=== PATIENT | male | born 1960 | race Caucasian/White ===

== ENCOUNTER 2016-10-31 23:21 | Emergency (ER) | payer MEDICARE, MEDICAID ==
[~2016-10-31] VITALS: Ht 165.1 cm; Wt 64.0 kg
[~2016-10-31 23:21] MED LIST: ACET-2178 PO; CHOL400T15 PO; CLON1TAB PO; DIVA500T3 PO; LACO100T2 PO; MYLANTA PO; NITR-87 PO; OXCA300T4 PO; OYSTER SHELL PO; PATAODR EACHEYE; PEPTO BISMOL PO; SYNTHROID PO
[2016-11-01 00:11] LABS: BASOPHILS % 1.3 % (0.0-2.0); EOSINOPHILS % 3.7 % (0.0-5.0); HEMOGLOBIN. 12.3 g/dL (14.0-18.0); LYMPHOCYTES % 56.6 % (20.0-50.0); MEAN CORPUSCULAR HEMOGLOBIN 32.2 pg (28.0-32.0); MEAN CORPUSCULAR HGB CONC 33.3 g/dL (31.0-37.0); MEAN CORPUSCULAR VOLUME 96.8 fL (80.0-94.0); MEAN PLATELET VOLUME 8.1 fl (7.4-10.4); MONOCYTES % 10.1 % (2.0-8.0); NEUTROPHILS % 28.3 % (40.0-76.0); PLATELET 222 x1000/uL (130-400); RED BLOOD CELL COUNT 3.82 mill/uL (4.7-6.1); RED CELL DISTRIBUTION WIDTH 14.7 % (11.6-14.6); WHITE BLOOD COUNT 5.8 x1000/uL (4.5-11.0)
[2016-11-01 00:16] LABS: CHLORIDE 103 mEq/L (98-107); INDEX HEMOLYSI 1 (1-3); INDEX ICTERIC 1 (1-4); INDEX LIPEMIC 1 (1-3)
[2016-11-01 00:25] LABS: ALANINE AMINOTRANSFERASE 23 IU/L (13-61); ANION GAP 12; CALCIUM 9.2 mg/dL (8.5-10.1); CARBON DIOXIDE 35 mEq/L (21-32); UREA NITROGEN BLOOD 11 mg/dL (7-21); eGFR > 60 mL/min (>60)
[2016-11-01 02:56] VITALS: BP 130/71
== END 2016-11-01 04:11 | disposition home or self-care (01) ==
LOC: ER 23:22
DX: R60.0 Localized edema (principal); E03.9 Hypothyroidism, unspecified; G80.9 Cerebral palsy, unspecified; Z79.1 Long term (current) use of non-steroidal anti-inflammatories (NSAID); Z79.899 Other long term (current) drug therapy
CPT/HCPCS: 36415; 71010; 80053; 85025; 99285

== ENCOUNTER 2016-11-22 10:26 | Inpatient (IN) | payer MEDICARE, MEDICAID ==
[~2016-11-22] VITALS: Ht 165.1 cm; Wt 77.6 kg
[2016-11-22] MEDS ORDERED: SODIUM CHLORIDE 0.9% 1,000 ML IV ONE (10:48)
[2016-11-22] MEDS ORDERED: MAGNESIUM CITRATE 300ML SOLUTION PO ONE (11:00)
[2016-11-22 11:23] LABS: BASOPHILS % 0.6 % (0.0-2.0); HEMATOCRIT. 40.7 % (42.0-52.0); HEMOGLOBIN. 13.5 g/dL (14.0-18.0); LYMPHOCYTES % 11.8 % (20.0-50.0); MEAN CORPUSCULAR HEMOGLOBIN 31.6 pg (28.0-32.0); MEAN CORPUSCULAR HGB CONC 33.2 g/dL (31.0-37.0); MEAN CORPUSCULAR VOLUME 95.2 fL (80.0-94.0); MONOCYTES % 8.1 % (2.0-8.0); NEUTROPHILS % 79.5 % (40.0-76.0); PLATELET 116 x1000/uL (130-400); RED BLOOD CELL COUNT 4.28 mill/uL (4.7-6.1); RED CELL DISTRIBUTION WIDTH 14.4 % (11.6-14.6); WHITE BLOOD COUNT 12.5 x1000/uL (4.5-11.0)
[2016-11-22 11:29] LABS: INR 1.2
[2016-11-22 11:32] LABS: ANION GAP 14; CALCIUM 8.8 mg/dL (8.5-10.1); CARBON DIOXIDE 29 mEq/L (21-32); CHLORIDE 100 mEq/L (98-107); INDEX HEMOLYSI 1 (1-3); INDEX ICTERIC 1 (1-4); INDEX LIPEMIC 1 (1-3); UREA NITROGEN BLOOD 27 mg/dL (7-21)
[2016-11-22 11:37] LABS: ALANINE AMINOTRANSFERASE 30 IU/L (13-61); eGFR > 60 mL/min (>60)
[2016-11-22 11:45] LABS: LACTIC ACID 2.2 mmol/L (0.4-2.0)
[2016-11-22] MEDS ORDERED: SODIUM CHLORIDE 0.9% 1000ML BAG (SEPSIS BOLUS) IV ONE (13:15)
[2016-11-22] MEDS ORDERED: LEVOFLOXACIN 750MG PREMIX 150 ML IV ONE (13:15)
[2016-11-22] MEDS ORDERED: METRONIDAZOLE 500 MG PREMIX 100 ML IV ONE (13:15)
[2016-11-22] MEDS ORDERED: DIVALPROEX SODIUM 250MG ER TABLET PO ONE (13:45)
[2016-11-22] MEDS ORDERED: CLONAZEPAM 1MG TABLET PO ONE (13:45)
[2016-11-22] MEDS ORDERED: ACETAMINOPHEN 650MG/20.3ML UDC PO ONE (14:15)
[2016-11-22] MEDS ORDERED: VALPROATE SODIUM 250MG/5ML UDC PO NR (14:20)
[2016-11-22 15:51] VITALS: BP 125/84
[2016-11-22 15:53] VITALS: BP 125/84
[2016-11-22] MEDS ORDERED: LORAZEPAM 2MG/ML CPJ IM PRN (16:45)
[2016-11-22] MEDS ORDERED: HYDROMORPHONE HCL/PF 2MG/ML CPJ IM PRN (16:54)
[2016-11-22] MEDS ORDERED: ONDANSETRON HCL 4MG/2ML VIAL IV PRN (16:55)
[2016-11-22] MEDS: SENNOSIDES 8.6MG TABLET PO SCH (17:00)
[2016-11-22] MEDS: SODIUM CHLORIDE 0.9% 1,000 ML IV SCH (17:24)
[2016-11-22 18:16] LABS: CLARITY URINE CLOUDY (CLEAR); COLOR URINE DARK YELLOW (YELLOW); GLUCOSE URINE NEGATIVE (NEGATIVE); KETONES URINE TRACE (NEGATIVE); LEUKOCYTE ESTERASE URINE 2+ (NEGATIVE); NITRITE URINE NEGATIVE (NEGATIVE); OCCULT BLOOD URINE NEGATIVE (NEGATIVE); PROTEIN URINE 1+ (NEGATIVE); SPECIFIC GRAVITY URINE 1.028 (1.005-1.030)
[2016-11-22 18:57] LABS: BACTERIA URINE 2+; RBC URINE 0-2 /hpf (0-2); SQUAMOUS EPITHELIAL CELL URINE 1+ /lpf (RARE/1+)
[2016-11-22 18:58] LABS: WBC URINE 15-25 /hpf (0-2)
[2016-11-22 20:00] VITALS: BP 142/90
[2016-11-22] MEDS ORDERED: VIMPAT 150 MG GT SCH (20:00)
[2016-11-22] MEDS ORDERED: DIVALPROEX SODIUM 250MG DR TABLET PO SCH (22:00)
[2016-11-22] MEDS: IPRATROPIUM/ALBUTEROL 0.5-3(2.5)MG/3ML NEB HHN SCH (22:07)
[2016-11-22] MEDS: CLONAZEPAM 1MG TABLET GT SCH (22:24)
[2016-11-22] MEDS: METRONIDAZOLE 500MG TABLET PO SCH (22:25)
[2016-11-22] MEDS: VALPROATE SODIUM 250MG/5ML UDC PO SCH (22:25)
[2016-11-23] VITALS: BP 136/99
[2016-11-23] MEDS: OXCARBAZEPINE 300MG TABLET GT SCH ×5 (00:44→23:52)
[2016-11-23] MEDS: IPRATROPIUM/ALBUTEROL 0.5-3(2.5)MG/3ML NEB HHN SCH ×3 (03:17→21:09)
[2016-11-23 04:00] VITALS: BP 124/82
[2016-11-23 05:41] LABS: BASOPHILS % 0.3 % (0.0-2.0); HEMATOCRIT. 43.1 % (42.0-52.0); HEMOGLOBIN. 14.4 g/dL (14.0-18.0); LYMPHOCYTES % 13.4 % (20.0-50.0); MEAN CORPUSCULAR HEMOGLOBIN 31.9 pg (28.0-32.0); MEAN CORPUSCULAR HGB CONC 33.5 g/dL (31.0-37.0); MEAN CORPUSCULAR VOLUME 95.1 fL (80.0-94.0); MEAN PLATELET VOLUME 9.4 fl (7.4-10.4); MONOCYTES % 5.7 % (2.0-8.0); NEUTROPHILS % 80.6 % (40.0-76.0); PLATELET 145 x1000/uL (130-400); RED BLOOD CELL COUNT 4.53 mill/uL (4.7-6.1); RED CELL DISTRIBUTION WIDTH 14.7 % (11.6-14.6); WHITE BLOOD COUNT 14.2 x1000/uL (4.5-11.0)
[2016-11-23] MEDS: VALPROATE SODIUM 250MG/5ML UDC PO SCH ×3 (06:31→21:42)
[2016-11-23] MEDS: METRONIDAZOLE 500MG TABLET PO SCH ×3 (06:31→21:42)
[2016-11-23] MEDS: CLONAZEPAM 1MG TABLET GT SCH ×3 (06:32→21:42)
[2016-11-23 06:49] LABS: ALANINE AMINOTRANSFERASE 34 IU/L (13-61); CARBON DIOXIDE 25 mEq/L (21-32); CHLORIDE 103 mEq/L (98-107); INDEX HEMOLYSI 1 (1-3); INDEX ICTERIC 1 (1-4); INDEX LIPEMIC 1 (1-3); UREA NITROGEN BLOOD 35 mg/dL (7-21); eGFR 45 mL/min (>60)
[2016-11-23 07:04] LABS: ALBUMIN 2.8 g/dL (3.4-5.0); ANION GAP 19
[2016-11-23 08:00] VITALS: BP 120/90
[2016-11-23] MEDS: SENNOSIDES 8.6MG TABLET PO SCH ×2 (08:44→17:41)
[2016-11-23] MEDS ORDERED: PANTOPRAZOLE SODIUM 40 MG/VIAL IV SCH (09:00)
[2016-11-23] MEDS ORDERED: METHYLPREDNISOLONE SOD SUCC 40 MG/ML VIAL IV SCH (10:00)
[2016-11-23 12:00] VITALS: BP 119/96
[2016-11-23] MEDS ORDERED: LEVOFLOXACIN 500MG PREMIX 100 ML IV SCH (15:00)
[2016-11-23 16:00] VITALS: BP 103/74
[2016-11-23 20:00] VITALS: BP 95/66
[2016-11-23] MEDS ORDERED: NA PHOS,M-B/NA PHOS,DI-BA ENEMA 118ML PR NR (20:45)
[2016-11-23] MEDS: SODIUM CHLORIDE 0.9% 1,000 ML IV SCH (21:41)
[2016-11-24] VITALS: BP 85/56
== END 2016-11-24 05:15 | disposition expired | DRG 871 ==
LOC: ER 10:44 → 8WST 13:06
PROVIDERS: ADMIT Hospitalist; ATTEND Hospitalist
DX: A41.9 Sepsis, unspecified organism (principal); J18.9 Pneumonia, unspecified organism; J45.901 Unspecified asthma with (acute) exacerbation; J98.11 Atelectasis; N17.9 Acute kidney failure, unspecified; N39.0 Urinary tract infection, site not specified; K56.60 Unspecified intestinal obstruction; E03.9 Hypothyroidism, unspecified; G40.909 Epilepsy, unspecified, not intractable, without status epilepticus; G80.9 Cerebral palsy, unspecified; K56.41 Fecal impaction; Z66 Do not resuscitate; Z79.899 Other long term (current) drug therapy
CPT/HCPCS: 36415; 43753; 71010; 74000; 74176; 80053; 80165; 81001; 83605; 85025; 85610; 87040; 87077; 87086; 87186; 93005; 94640; 94664; 96361; 96365; 96367; 99285; C9113; J1956; J2920; J3490; J7030; J7040; J7620; A4315